=== PATIENT | male | born 1970 | race Two or more races ===

== ENCOUNTER → 2020-07-29 | Outpatient (CLI) | payer BC | END | disposition home or self-care (01) | LOC: PETCFH 09:39 | PROVIDERS: ATTEND Pathology Hematology | DX: C88.4 Extranodal marginal zone B-cell lymphoma of mucosa-associated lymphoid tissue [MALT-lymphoma] (principal); D50.9 Iron deficiency anemia, unspecified; R59.9 Enlarged lymph nodes, unspecified | CPT/HCPCS: 78815; A9552 ==

== ENCOUNTER 2020-08-01 15:26 | Emergency (ER) | payer BC ==
[~2020-08-01] VITALS: Ht 177.8 cm; Wt 92.2 kg
[2020-08-01 15:42] VITALS: BP 134/84
== END 2020-08-01 17:16 | disposition home or self-care (01) ==
LOC: ED 17:00
DX: J18.0 Bronchopneumonia, unspecified organism (principal); R07.9 Chest pain, unspecified; Z20.828 Contact with and (suspected) exposure to other viral communicable diseases
CPT/HCPCS: 71045; 87635; 99284